=== PATIENT | female | born 2000 | race Caucasian/White ===

== ENCOUNTER 2020-10-09 15:37 | Outpatient (CLI) | payer BC | END 2020-10-09 15:38 | disposition home or self-care (01) | LOC: CSHMRI 15:37 | PROVIDERS: ATTEND Orthopaedic Surgery | DX: S83.005A Unspecified dislocation of left patella, initial encounter (principal); M23.8X2 Other internal derangements of left knee; S83.012A Lateral subluxation of left patella, initial encounter ==

== ENCOUNTER 2023-10-12 04:39 | Emergency (ER) | payer OTHER, SELFPAY | END 2023-10-12 07:30 | disposition home or self-care (01) | LOC: CSHERS 04:39 | DX: R10.10 Upper abdominal pain, unspecified (principal) | CPT/HCPCS: 36415; 76705; 80053; 81001; 85025; 96374; 96375; J1170; J2405 ==